=== PATIENT | female | born 1995 | race Caucasian/White ===

== ENCOUNTER 2019-02-20 12:27 | Emergency (ER) | payer BC ==
[~2019-02-20] VITALS: Ht 167.6 cm; Wt 54.4 kg
[2019-02-20 12:27] VITALS: BP_SYST 124
--- NOTE | 2019-02-20 12:27 | NUR ---
BROUGHT IN BY [facility], PLACED IN BED #7 AND TRIAGED. REPORT GIVEN TO GODWIN
--- NOTE | 2019-02-20 12:46 | NUR ---
PT WANDERING ALL OVER ER LOOKING FOR EDDIE. CALL PLACED TO AUNT THIAGO AND MESSAGE LEFT. #[phone]
--- NOTE | 2019-02-20 12:47 | NUR ---
REDIRECTED BACK TO ROOM AND ENVIRONMENT
--- NOTE | 2019-02-20 13:00 | NUR ---
Pieter shafer in ED - 02/20/19 at 1332 by LUPE PATIENT WALKED OUT FRONT OF HOSPITAL AT 1323. PATIENT FOUND WONDERING AROUND HOSPITAL. PATIENT PLACED IN BED 1.
--- NOTE | 2019-02-20 13:10 | NUR ---
PATIENT CAME IN COMPLAINING OF PANIC ATTACK WHEN SHE WAS WALKING. PATIENT STATES SHE FEELS "A LOT BETTER NOW." PATIENT HAS NO SIGNS OF DISTRESS. PATIENT RESTING IN BED. PATIENT DENIES PAIN AND SOB. PATIENT DENIES NAUSEA AND VOMITING. PATIENT ALERT AND ORIENTED X4. PATIENT WHISPERING WHEN TALKED TO BECAUSE SHE IS THIRSTY. PATIENT ALSO TALKED IN NORMAL TONE.
--- NOTE | 2019-02-20 13:30 | NUR ---
PATIENT WALKED OUT FRONT OF HOSPITAL AT 1323. PATIENT FOUND WONDERING AROUND HOSPITAL. PATIENT PLACED IN BED 1.
--- NOTE | 2019-02-20 13:33 | NUR ---
ER Dr. MARIE at bedside examining patient.
--- NOTE | 2019-02-20 13:37 | NUR ---
PT WANDERING HALLWAY. PT REDIRECTED TO ROOM 1 AND RE-ORIENTED TO SURROUNDINGS
[2019-02-20] MEDS ORDERED: LORazepam 2 MG/ML VIAL IVP ONE (13:45)
[2019-02-20] MEDS ORDERED: NACL 0.9% 1,000 ML IV ONE (13:45)
--- NOTE | 2019-02-20 13:45 | NUR ---
# 20 gauge angiocath placed to LEFT AC. Use of asceptic technique. Opsite placed over site. Blood return noted. Blood for lab drawn from site. Flushed with 10 cc of normal saline. No evidence of infiltration noted. Patient tolerated well.
--- NOTE | 2019-02-20 13:48 | NUR ---
PATIENT PLACE IN HALLWAY. SECURITY AT BEDSIDE.
[2019-02-20 13:57] LABS: MEAN CORPUSCULAR VOLUME 91 fL (79.0-98.0); NEUTROPHILS # (AUTO) 6.5 K/uL (1.8-7.7)
[2019-02-20 14:05] LABS: BASOPHILS % (AUTO) 0.3 % (0.0-2.0); EOSINOPHILS % (AUTO) 0.1 % (0.0-4.0); HEMATOCRIT 48.6 % (36-48); HEMOGLOBIN 16.3 g/dL (12.0-16.0); LYMPHOCYTES # (AUTO) 1.2 K/uL (1.0-5.5); LYMPHOCYTES % (AUTO) 14.3 % (20.5-51.5); MEAN CORPUSCULAR HEMOGLOBIN 31 pg (27-31); MEAN CORPUSCULAR HGB CONC 34 % (32-36); MONOCYTES # (AUTO) 0.8 K/uL (0.0-1.0); MONOCYTES % (AUTO) 9.1 % (1.7-9.3); NEUTROPHILS % (AUTO) 76.2 % (40.0-70.0); PLATELET COUNT (AUTO) 251 K/uL (130-430); RED BLOOD CELL COUNT(AUTO) 5.32 MIL/uL (4.2-6.2); RED CELL DISTRIBUTION WIDTH 12.9 % (9.0-15.0); WHITE BLOOD COUNT (AUTO) 8.5 K/uL (4.8-10.8)
--- NOTE | 2019-02-20 14:05 | NUR ---
PATIENT PLACED IN ROOM 6. SITTER AT BEDSIDE.
[2019-02-20 14:08] LABS: ANION GAP 21 (5-15); CALCIUM 9.4 mg/dL (8.4-11.0); CHLORIDE 105 mmol/L (98-107); CREATININE 0.89 mg/dL (0.55-1.30); GLUCOSE 88 mg/dL (70-99); POTASSIUM 3.6 mmol/L (3.5-5.1); SODIUM SERUM 143 mmol/L (136-145); UREA NITROGEN, BLOOD 9 mg/dL (8-21)
[2019-02-20 14:08] LABS: BARBITURATE, URINE NEGATIVE (NEG <=200); BENZODIAZEPINE, URINE NEGATIVE (NEG <=150); CANNABINOID, URINE NEGATIVE (NEG <=50); COCAINE, URINE NEGATIVE (NEG <=150); METHAMPHETAMINES SCREEN,URINE NEGATIVE (NEG <=500); OPIATE, URINE NEGATIVE (NEG <=100); PHENCYCLIDINE SCREEN,URINE NEGATIVE (NEG <=25); UR TRICYCLIC ANTIDEPRESSANTS NEGATIVE (NEG <=300); URINE AMPHETAMINE NEGATIVE (NEG <=500); URINE METHADONE NEGATIVE (NEG <=200); URINE OXYCODONE SCREEN NEGATIVE (NEG <=100); URINE PROPOXYPHENE SCREEN NEGATIVE (NEG <=300)
[2019-02-20 14:09] LABS: GFR AFRICAN AMERICAN 101 mL/min (>90)
[2019-02-20 14:13] LABS: ALANINE AMINOTRANSFERASE 22 U/L (12-78); ALBUMIN 4.3 g/dL (3.4-4.8); ASPARTATE AMINOTRANSFERASE 25 U/L (10-37); TOTAL BILIRUBIN 1.2 mg/dL (0.0-1.0)
[2019-02-20 14:15] LABS: ACETAMINOPHEN < 1 ug/mL (1-30); ALCOHOL, BLOOD < 3 mg/dL (<10)
--- NOTE | 2019-02-20 14:28 | NUR ---
ENDORSED CARE TO BASSAM CONNELLY.
[2019-02-20] MEDS ORDERED: HALOPERIDOL LACTATE 5 MG/ML VIAL IM ONE (14:45)
--- NOTE | 2019-02-20 14:45 | NUR ---
Patient awake, agitated, refusing to stay in ER room 6, discontinued IV. Educated patient on medical/nursing care.
--- NOTE | 2019-02-20 14:47 | NUR ---
Made Dr. Schmitz aware of Patient dc IV.
[2019-02-20] MEDS ORDERED: HALOPERIDOL LACTATE 5 MG/ML VIAL ONE (14:48)
--- NOTE | 2019-02-20 15:22 | NUR ---
SPOKE WITH AUNT THIAGO AND PT HAS BEEN DX WITH SCHIZOPHRENIA AND BIPOLAR. PT OFF HER MEDS LITHIUM AND LATUDA FOR 3-4 MONTHS, PT WAS IN [facility] IN [place], [place] RECENTLY. MOTHER MADAY LIVES IN [place] AND BROTHER AMY IS PTS GUARDIAN. AUNT THIAGO WILL CALL PTS MOTHER.
--- NOTE | 2019-02-20 15:24 | NUR ---
SPOKE WITH PTS MOTHER AND SHE IS ON HER WAY HERE.
--- NOTE | 2019-02-20 16:10 | NUR ---
MOTHER AT BEDSIDE, PT NOT TALKING AT THIS TIME. MOTHER REQUESTING PTS BACKPACK AND PT DID NOT COME WITH A BACKPACK, GOT IN TOUCH WITH [facility] AND CONFIRMED THAT PT HAD ONLY CLOTHES ON HER AND SANDALS. MOTHER STATES THAT PT HIDES HER BACKPACK THINKING IT TRACKS HER, BY HER PHONE.
--- NOTE | 2019-02-20 17:20 | NUR ---
Patient asleep, mother of Pt at bedside.
--- NOTE | 2019-02-20 18:00 | NUR ---
PET team Ryley Selby at bedside interview with patient and Mother of patient.
--- NOTE | 2019-02-20 18:44 | NUR ---
Ryley Selby PET placed 5150 HOLD for patient. Hold for danger to self and gravely disabled.
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
--- NOTE | 2019-02-20 19:16 | NUR ---
Report to Keyana BANEGAS
--- NOTE | 2019-02-20 19:40 | NUR ---
Pt's packet faxed to the following [facility] facilities: [facility] Awaiting reply regarding possible acceptance.
--- NOTE | 2019-02-20 20:27 | NUR ---
Patient to be transferred to [place]. Is being transferred due to higher level of care. Receiving facility has accepting physician and available space. ER physician has signed transfer form. Patient or responsible green party has agreed to transfer and signed form. Patient belongings inventoried and will be sent with patient. Copy of nursing notes, lab reports, EKG, Physicians Orders and X-rays to be sent with patient. Report called to Radha at receiving facility. Receiving physician is [facility] for transfer. ETA is 20 minutes.
[2019-02-20 20:30] VITALS: BP_SYST 100
--- NOTE | 2019-02-20 20:46 | NUR ---
patient left facility in stable condition.
== END 2019-02-20 20:46 ==
LOC: SED 12:27
DX: F29 Unspecified psychosis not due to a substance or known physiological condition (principal)
CPT/HCPCS: 36415; 80053; 80307; 85025; 96372; 96374; 99285; G0480; G0481; G0482; J1630; J2060; J7030; 93005